=== PATIENT | female | born 1950 | race American Indian/Alaskan Native ===

== ENCOUNTER 2017-01-16 10:34 | Observation (INO) | payer MEDICARE ==
--- NOTE | 2017-01-16 11:07 | ED PDOC ---
Arrival/HPI - General Chief Complaint: Syncope Time Seen by Provider: 01/16/17 10:35 Historian: Patient - History of Present Illness Narrative History of Present Illness (Text): 01/16/17 11:00 Britni Ohara is a 66 year old female, who presents to the emergency department complaining of loss of consciousness and fall. Patient reports at around 06:30 AM today she felt lightheaded, but did not fall. A few hours later she felt the second episode of lightheadedness and fell, losing consciousness. Patient reports hitting her head and now has a bump. Patient denies vision changes, chest pain, shortness of breath, nausea, vomiting, or other complaints. Denies weakness or numbness. Denies trouble speaking. PMD: Dr. Salmeron = Time/Duration: Prior to Arrival Symptom Onset: Sudden Symptom Course: Unchanged Activities at Onset: Light Context: Home Past Medical History - Provider Review Nursing Documentation Reviewed: Yes - Infectious Disease Hx of Infectious Diseases: None - Reproductive Menopause: Yes - Gastrointestinal Hx Diverticulitis: Yes - Psychiatric Hx Substance Use: No - Surgical History Hx Section: Yes Other/Comment: breast lumpectomy benign - Anesthesia Hx Anesthesia: Yes Hx Anesthesia Reactions: No Family/Social History - Physician Review Nursing Documentation Reviewed: Yes Family/Social History: Unknown Family HX Smoking Status: Former Smoker Hx Alcohol Use: No Hx Substance Use: No Allergies/Home Meds Allergies/Adverse Reactions: Allergies No Known Allergies Allergy (Unverified 08/04/13 10:01) Home Medications: Home Meds Medication Instructions Recorded Confirmed No Known Home Med 01/16/17 01/16/17 Review of Systems - Review of Systems Constitutional: absent: Fevers Eyes: absent: Vision Changes Respiratory: absent: SOB, Cough Cardiovascular: Syncope. absent: Chest Pain Gastrointestinal: absent: Abdominal Pain, Vomiting Genitourinary Female: absent: Dysuria Musculoskeletal: Other (bump behind head). absent: Back Pain Neurological: Dizziness (states dizziness but describes lightheadedness). absent: Focal Weakness, Speech Changes Physical Exam Vital Signs Reviewed: Yes Vital Signs Temp Pulse Resp BP Pulse Ox 01/16/17 14:39 89 16 114/61 100 01/16/17 14:01 74 18 118/65 01/16/17 12:55 74 18 118/65 98 01/16/17 11:08 99.0 F 88 18 120/68 98 01/16/17 10:43 99 F 88 16 120/68 96 Temperature: Afebrile Blood Pressure: Normal Pulse: Regular Respiratory Rate: Normal Appearance: Positive for: Well-Appearing, Non-Toxic, Comfortable Pain Distress: None Mental Status: Positive for: Alert and Oriented X 3 Finger Stick Blood Glucose: 112 - Systems Exam Head: Present: Atraumatic, Normocephalic, Other ((+) 1 inch left hematoma behind head) Pupils: Present: PERRL Extroacular Muscles: Present: EOMI Conjunctiva: Present: Normal Neck: Present: Normal Range of Motion. No: MIDLINE TENDERNESS, Paraspinal Tenderness Respiratory/Chest: Present: Clear to Auscultation, Good Air Exchange. No: Respiratory Distress, Accessory Muscle Use Cardiovascular: Present: Regular Rate and Rhythm, Normal S1, S2. No: Murmurs Back: Present: Normal Inspection. No: Midline Tenderness, Paraspinal Tenderness , Pain with Leg Raise Upper Extremity: Present: Normal Inspection, Normal ROM, NORMAL PULSES, Neurovascularly Intact, Capillary Refill < 2s. No: Cyanosis, Edema, Tenderness , Swelling, Erythema, Deformity Lower Extremity: Present: Normal Inspection, NORMAL PULSES, Normal ROM, Neurovascularly Intact, Capillary Refill < 2 s. No: Edema, CALF TENDERNESS, Cyanosis, Tenderness, Swelling, Erythema, Deformity Neurological: Present: GCS=15, CN II-XII Intact, Speech Normal, Motor Func Grossly Intact, Normal Sensory Function, Normal Cerebellar Funct, Memory Normal Skin: Present: Warm, Dry, Normal Color. No: Rashes Psychiatric: Present: Alert, Oriented x 3, Normal Insight, Normal Concentration Medical Decision Making ED Course and Treatment: 01/16/17 Impression: 66 year old female with 1 inch left hematoma behind head and syncopal episode r/ o cardiac vs neurogenic Plan: -- CT Head -- EKG -- Labs -- Reassess and disposition Progress Notes: 01/16/17 EKG: Ordered, reviewed, and independently interpreted the EKG. Rate : 80 BPM Rhythm : NSR Interpretation : No ST-segment elevations or depressions, no T-wave inversions, normal intervals. 01/16/17 12:[address]: Creator: Roque Galicia MD FINDINGS: HEMORRHAGE: No acute parenchymal, subarachnoid or extra-axial hemorrhage. BRAIN: There may be some minimal chronic periventricular white matter ischemic changes. . Questionable small low-attenuation focus seen in the anterior limb right internal capsule which could represent volume averaging of low- attenuation white matter however possibility of a tiny chronic lacunar type infarct not excluded. No evidence of large acute infarct. Mild generalized volume loss. Minor vascular calcifications both carotid siphons. VENTRICLES: Unremarkable. No hydrocephalus. CALVARIUM: Unremarkable. PARANASAL SINUSES: Paranasal sinuses are well-developed and currently well- aerated. Minor mucosal thickening seen within the inferior aspect of the frontal sinus MASTOID AIR CELLS: Unremarkable as visualized. No inflammatory changes. OTHER FINDINGS: Orbits and contents appear grossly unremarkable. IMPRESSION: No acute intracranial hemorrhage. Suspect very minimal chronic periventricular white matter ischemic changes. Questionable artifact versus tiny chronic lacunar type infarct anterior limb right internal capsule. Mild generalized volume loss. 01/16/17 13:00 Chest X-ray: Creator : Roque Galicia MD FINDINGS: LUNGS: Clear. PLEURA: No pneumothorax or pleural fluid seen. CARDIOVASCULAR: Normal. OSSEOUS STRUCTURES: No significant abnormalities. VISUALIZED UPPER ABDOMEN: Normal. OTHER FINDINGS: None. IMPRESSION: No active disease. CT head with no intracranial hemorrhage. CXR nl. Case was discussed with Dr. Glass who will admit to his service. He requested consults with Dr. Garcia and Dr. Shankar. - Lab Interpretations Lab Results: 01/16/17 11:25 01/16/17 11:25 Lab Results 01/16/17 11:25: PT 12.0, INR 1.09 H, APTT 26.9 01/16/17 11:25: Sodium 142, Potassium 4.2, Chloride 105, Carbon Dioxide 27, Anion Gap 15, BUN 18, Creatinine 0.9, Est GFR ( Amer) > 60, Est GFR (Non- Af Amer) > 60, Random Glucose 114 H, Calcium 9.9, Magnesium 1.9, Total Bilirubin 0.5, AST 30, ALT 32, Alkaline Phosphatase 62, Lactate Dehydrogenase 464, Total Creatine Kinase 79, Troponin I < 0.01, Total Protein 8.1, Albumin 4.5 , Globulin 3.6, Albumin/Globulin Ratio 1.3 01/16/17 11:25: Urine Color Light yellow, Urine Appearance Clear, Urine pH 6.5, Ur Specific [place] 1.010, Urine Protein Negative, Urine Glucose (UA) Negative, Urine Ketones Negative, Urine Blood Negative, Urine Nitrate Negative, Urine Bilirubin Negative, Urine Urobilinogen 0.2, Ur Leukocyte Esterase Negative 01/16/17 11:25: WBC 7.1, RBC 4.58, Hgb 14.0, Hct 41.4, MCV 90.4, MCH 30.6, MCHC 33.8, RDW 13.6, Plt Count 222, MPV 11.2 H, Gran % 84.1 H, Lymph % (Auto) 13.2 L , [place] % (Auto) 2.5, Eos % (Auto) 0.1 L, Baso % (Auto) 0.1, Gran # 5.93, Lymph # 0.9 L, [place] # 0.2, Eos # 0.0, Baso # 0.01 01/16/17 10:48: POC Glucose (mg/dL) 112 H - RAD Interpretation Radiology Orders: 01/16/17 11:11 CHEST ONE VIEW [RAD] Stat 01/16/17 11:12 HEAD W/O CONTRAST [CT] Stat NIHSS Stroke Scale 3 - Date/Time Evaluation Performed Date Performed: 01/16/17 Time Performed: 11:00 When Was NIHSS Performed: Baseline - How Severe is the Stroke Level of Consciousness: 0=Alert LOC to Questions: 0=Both comments correct LOC to commands: 0=Obeys both correctly Best Gaze: 0=Normal Visual: 0=No visual loss Facial: 0=Normal Motor Arm - Left: 0=No drift Motor Arm - Right: 0=No drift Motor Leg - Left: 0=No drift Motor Leg - Right: 0=No drift Limb Ataxia: 0=Absent Sensory: 0=Normal Best Language: 0=No aphasia Dysarthia: 0=Normal articulation Extinction & Inattention (Neglect): 0=Normal, no object Score: 0 - Scribe Statement The provider has reviewed the documentation as recorded by the Laura Francis Provider Scribe Attestation: All medical record entries made by the Scribe were at my direction and personally dictated by me. I have reviewed the chart and agree that the record accurately reflects my personal performance of the history, physical exam, medical decision making, and the department course for this patient. I have also personally directed, reviewed, and agree with the discharge instructions and disposition. Disposition/Present on Arrival - Present on Arrival Any Indicators Present on Arrival: No History of DVT/PE: No History of Uncontrolled Diabetes: No Urinary Catheter: No History of Decub. Ulcer: No History Surgical Site Infection Following: None - Disposition Have Diagnosis and Disposition been Completed?: Yes Diagnosis: Syncope, Head injury Disposition Time: 13:47 Patient Plan: Observation Condition: FAIR
[2017-01-16 11:36] LABS: BASO # 0.01 K/mm3 (0.0-2.0); BASO % 0.1 % (0.0-3.0); EOS % 0.1 % (1.5-5.0); GRAN # 5.93 (1.4-6.5); GRAN % 84.1 % (50.0-68.0); HEMATOCRIT 41.4 % (36.0-48.0); LYMPH # 0.9 (1.2-3.4); LYMPH % 13.2 % (22.0-35.0); MEAN CELL VOLUME 90.4 fl (80.0-105.0); MEAN CORPUSCULAR HEMOGLOBIN 30.6 pg (25.0-35.0); MEAN CORPUSCULAR HGB CONC 33.8 g/dl (31.0-37.0); MEAN PLATELET VOLUME 11.2 fl (7.0-11.0); MONO # 0.2 (0.1-0.6); MONO % 2.5 % (1.0-6.0); PH,URINE 6.5 (4.7-8.0); RED CELL DISTRIBUTION WIDTH 13.6 % (11.5-14.5); URINE BILIRUBIN NEGATIVE (NEGATIVE); URINE BLOOD NEGATIVE (NEGATIVE); URINE GLUCOSE (UA) NEGATIVE (NEGATIVE); URINE KETONE NEGATIVE (NEGATIVE); URINE LEUKOCYTE ESTERASE NEGATIVE Leu/uL (NEGATIVE); URINE PROTEIN NEGATIVE mg/dL (<30 mg/dL); URINE UROBILINOGEN 0.2 E.U./dL (<1 E.U./dL); WHITE BLOOD COUNT 7.1 10^3/ul (4.5-11.0)
[2017-01-16 11:37] LABS: URINE APPEARANCE CLEAR (CLEAR); URINE COLOR LIGHT YELLOW (YELLOW)
[2017-01-16 11:46] LABS: ALB/GLOB RATIO 1.3 (1.1-1.8); ALKALINE PHOSPHATASE 62 U/L (38-126); ALT/SGPT 32 U/L (7-56); AST/SGOT 30 U/L (14-36); BILIRUBIN,TOTAL 0.5 mg/dL (0.2-1.3); BLOOD UREA NITROGEN 18 mg/dL (7-21); CALCIUM 9.9 mg/dL (8.4-10.5); CARBON DIOXIDE 27 mmol/L (21-33); CHLORIDE 105 mmol/L (98-107); GFR AFRICAN-AMERICAN > 60; GLUCOSE,RANDOM 114 mg/dL (70-110); INR 1.09 (0.93-1.08); MAGNESIUM 1.9 mg/dL (1.7-2.2); PARTIAL THROMBOPLASTIN TIME 26.9 Seconds (25.1-36.5); POTASSIUM 4.2 mmol/L (3.6-5.0); SODIUM 142 mmol/L (132-148); TOTAL PROTEIN 8.1 g/dL (5.8-8.3)
[2017-01-16 11:57] LABS: TROPONIN I < 0.01 ng/mL
--- NOTE | 2017-01-16 12:12 | CT ---
PROCEDURE: CT HEAD WITHOUT CONTRAST. HISTORY: head injury and syncope COMPARISON: None available. TECHNIQUE: Axial computed tomography images were obtained through the head/brain without intravenous contrast. Radiation dose: Total exam DLP = 726.57 mGy-cm. This CT exam was performed using one or more of the following dose reduction techniques: Automated exposure control, adjustment of the mA and/or kV according to patient size, and/or use of iterative reconstruction technique. FINDINGS: HEMORRHAGE: No acute parenchymal, subarachnoid or extra-axial hemorrhage. BRAIN: There may be some minimal chronic periventricular white matter ischemic changes. . Questionable small low-attenuation focus seen in the anterior limb right internal capsule which could represent volume averaging of low-attenuation white matter however possibility of a tiny chronic lacunar type infarct not excluded. No evidence of large acute infarct. Mild generalized volume loss. Minor vascular calcifications both carotid siphons. VENTRICLES: Unremarkable. No hydrocephalus. CALVARIUM: Unremarkable. PARANASAL SINUSES: Paranasal sinuses are well-developed and currently well-aerated. Minor mucosal thickening seen within the inferior aspect of the frontal sinus MASTOID AIR CELLS: Unremarkable as visualized. No inflammatory changes. OTHER FINDINGS: Orbits and contents appear grossly unremarkable. IMPRESSION: No acute intracranial hemorrhage. Suspect very minimal chronic periventricular white matter ischemic changes. Questionable artifact versus tiny chronic lacunar type infarct anterior limb right internal capsule. Mild generalized volume loss.
--- NOTE | 2017-01-16 12:55 | RAD ---
PROCEDURE: CHEST RADIOGRAPH, 1 VIEW HISTORY: syncope COMPARISON: None available. FINDINGS: LUNGS: Clear. PLEURA: No pneumothorax or pleural fluid seen. CARDIOVASCULAR: Normal. OSSEOUS STRUCTURES: No significant abnormalities. VISUALIZED UPPER ABDOMEN: Normal. OTHER FINDINGS: None. IMPRESSION: No active disease.
[2017-01-16 14:07] VITALS: BMI 24.2
--- NOTE | 2017-01-16 15:21 | MRI ---
PROCEDURE: MR LUMBAR SPINE WITHOUT CONTRAST HISTORY: Back pain COMPARISON: No prior study available for comparison TECHNIQUE: Multiecho multiplanar sequences were performed through the lumbar spine without the use of intravenous contrast. Study is limited by motion artifact. FINDINGS: Current study reveals no acute compression fractures no retropulsed fragments. Vertebral bodies exhibit normal stature. Vertebral bodies and facets normally aligned. . Mild multilevel degenerative spondylosis. T12-L1: No disc herniation, spinal canal stenosis or neural foraminal narrowing. L1-2: No disc herniation, spinal canal stenosis or neural foraminal narrowing. L2-3: Mild age related disc desiccation. Disc space height maintained. There is also mild bilateral on lateral disc bulging that extends into the proximal inferior margins of both exit foramina. Facets are mildly hypertrophic. Central canal and exit foramina are adequate. Note made of an apparent small left-sided nerve sleeve cyst at this level as well. L3-4: Mild age related disc desiccation. Disc space height is maintained. . Small broad-based disc bulge ridge complex is also seen somewhat larger on the left than right with extension into the proximal inferior margin of the left exit foramen. Facets are hypertrophic. Central canal is adequate. Exit foramina are marginal to adequate left slightly more narrowed than the right. L4-5: Mild age related disc desiccation. Disc space height is relatively maintained. Minimal broad-based disc bulge ridge complex is present with small herniation component within the proximal inferior margin left exit foramen. Minimal bulge extends into the proximal inferior margin right exit foramen. There is some flattening of the ventral surface of the thecal sac however the overall central canal appears adequate. Facets are hypertrophic. Exit foramina appear adequate as well despite encroaching disc left proximal L5-S1: There is mild disc desiccation and disc space narrowing so along the posterior disc margin. Small asymmetric disc ridge complex focally larger centrally and to the left and right side. There is some minimal flattening of the ventral surface of the thecal sac centrally and to the right however the overall central canal is adequate new. Facets are mildly hypertrophic. The disc does extend into the proximal inferior margins of the right exit foramen with some slight flattening of the anterior inferior margin of the right L5 exit foramen. Left exit foramen is adequate. There is a small right-sided Tarlov cyst at the S2 level best seen on the sagittal T1 and sagittal STIR sequences. OTHER FINDINGS: Conus terminates at approximately the mid to lower L1 level. The note made of what probably represents a small right adnexal cyst that measures approximately 2.1 x 1.3 cm. Questionable very tiny left adnexal cyst also felt be present. . Pelvic ultrasound followup could be performed further evaluation. IMPRESSION: Limited motion degraded study. Mild multilevel degenerative spondylosis as detailed above. 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 There appears to be a small right-sided adnexal cyst. Questionable very tiny left adnexal cyst. Consider followup pelvic ultrasound. . Followup ultrasound could be performed for further evaluation.
--- NOTE | 2017-01-16 15:31 | MRI ---
PROCEDURE: MRI of the thoracic spine dated the 01/16/2017. HISTORY: Pain. COMPARISON: No prior study available comparison. TECHNIQUE: Multiecho multiplanar sequences were performed through the thoracic spine without the use of intravenous contrast. . Study is limited by motion artifact. FINDINGS: The current study reveals mild chronic appearing anterior wedge deformity of the T4 segment. No significant retropulsed fragments. Slight increased kyphosis at this level. The remaining vertebral bodies and otherwise exhibit normal stature and alignment. Facets normally aligned. . There is a slight disc desiccation at the T3-T6 through or disc space level with a minimal broad-based bulge of the posterior annulus. The remaining disc spaces exhibit mild age related disc desiccation. Disc space heights maintained. No disc herniation or significant disc bulge. Note made of a small right-sided nerve sleeve cyst at the T9-T10 level The overall central bony canal and exit foramina appear adequate. . No intrinsic signal changes seen within the visualized spinal cord. IMPRESSION: Limited motion degraded study. Minor chronic stature loss of the T4 segment with slight increased kyphosis at this level. Minimal broad-based bulge of the posterior annulus seen at the T3-T4 level. The overall central bony canal and exit foramina appear adequate throughout.
--- NOTE | 2017-01-17 00:05 | HP ---
HISTORY OF PRESENT ILLNESS: I was called onto the emergency room to evaluate Britni Ohara. She is a 66-year-old female, who presents with loss of consciousness, status post fall and back pain. She also hit her head and has a lump on the back of the head. She felt dizzy. She lost consciousness. She hit her head, has a lump behind the posterior left side of her head. No chest pain. No shortness of breath. PAST MEDICAL HISTORY: She has a past medical history of menopause, diverticulitis, but none now. She had a breast lumpectomy, benign in the past; also had . FAMILY HISTORY: Unknown family history. SOCIAL HISTORY: Former smoker. No alcohol. No drugs. ALLERGIES: NO KNOWN DRUG ALLERGIES. MEDICATIONS: Does not take any home medications. REVIEW OF SYSTEMS: No fevers, no acute vision changes or hearing changes. No shortness of breath or cough. No chest pain. No abdominal pain, nausea, vomiting, constipation, or diarrhea. No problems urinating. She did lose consciousness. There is a bump behind her head. She did put ice on it. She was dizzy and then lost consciousness. PHYSICAL EXAMINATION GENERAL: She is well appearing, nontoxic, comfortable, though a bit distressed with the left head pain. She is also having middle and lower back pain which comes and goes. She is asking for MRIs. She is alert and oriented x3. Right now, daughter is with her. The blood sugar is 112. VITAL SIGNS: She has a 99 temperature, 88 pulse, 18 respiratory rate, 120/68 blood pressure, and 90% O2 saturation on room air. HEENT: Head is traumatic with a hematoma behind the head in the left side, one inch, normocephalic. Extraocular muscles are intact. Pupils are equally reactive to light. Throat is moist. NECK: Supple. May be gentle tenderness to the cervical spine in the left side, mild. HEART: Regular rate. Normal S1 and S2. LUNGS: Clear to auscultation bilaterally. ABDOMEN: Soft. Positive bowel sounds. No guarding. No rebound. EXTREMITIES: Able to move all 4 extremities. No edema. NEURO: GCS is 15. Cranial nerves II through XII are grossly intact. Normal speech. Can stick out her tongue midline. She can close her eyes tight. Extraocular muscles are intact. SKIN: Warm and dry. No apparent rashes or ulcers. Alert and oriented x3. LYMPHATICS: Thyroid midline, no palpable appreciable lymphadenopathy. LABORATORY DATA: EKG, ST-segment elevations or depressions, none of those, it was a normal sinus rhythm. her urine is clear. She has 142 sodium, 4.2 potassium, BUN 18, creatinine 0.9, GFR is greater than 60, sugar is 112 and 114, calcium is 9.9, magnesium is 1.9, total bilirubin is 0.5, AST is 30, ALT is 32, alkaline phosphatase is 62, lactate dehydrogenase is 464, total creatine kinase is 79, troponin I is less than 0.01, total protein is 8.1, albumin is 4.5, globulin is 3.6, INR is 1.09. She has a 7.1 white count, 14 hemoglobin, 41.4 hematocrit with 222 platelets. She had a head CT and a chest x-ray. Chest x-ray showed no active disease. Head CT showed no acute intracranial hemorrhage, suspect very minimal chronic periventricular white matter ischemic changes, questionable artifact versus tiny chronic lacunar-type infarct in anterior limb of right internal capsule, mild generalized volume loss. PLAN: She is going to be admitted on telemetry observation for syncope, head trauma, dizziness, back pain. She had MRIs of the thoracic and lumbar spine. Consult with Pulmonary and Neurology, have her labs checked tomorrow, neurochecks. Physical therapy will be ordered. Discussed this with the daughter and the patient at length, and we will watch her overnight and make sure she will be on telemetry. Galileo Glass DO
--- NOTE | 2017-01-17 01:35 | CON ---
DATE: 01/16/2017 HISTORY OF PRESENT ILLNESS: This is a 66-year-old female with past medical history not significant, came to emergency room with lightheaded and fell, lost consciousness. The patient has a lump on the back of her head. Daughter is at bedside. PAST MEDICAL HISTORY: Not significant. ALLERGIES: NO KNOWN DRUG ALLERGY. SOCIAL HISTORY: Does not smoke. Does not drink. PHYSICAL EXAMINATION VITAL SIGNS: Blood pressure 120/68. HEENT: Normocephalic, atraumatic. NECK: Supple. NEUROLOGIC: Alert, awake, and oriented x3. No aphasia. Cranial nerves II to XII were tested. Pupils reactive. EOM intact. Visual grimes, full. No facial asymmetry. Tongue midline. Motor examination, moves all the extremities equally. Tone normal. Deep tendon reflexes 1+. Both plantars downgoing. Sensory appears intact. Cerebellar and gait, deferred. IMPRESSION AND PLAN: Syncope, less likely seizure. CAT scan of the head is done, which is negative. The patient had MRI. We will follow up the result. We will do EEG and follow up. Bryce Shankar MD
[2017-01-17 06:48] VITALS: O2SAT 97
[2017-01-17 07:00] LABS: HEMATOCRIT 38.5 % (36.0-48.0); MEAN CORPUSCULAR HEMOGLOBIN 29.7 pg (25.0-35.0); RED CELL DISTRIBUTION WIDTH 13.6 % (11.5-14.5); WHITE BLOOD COUNT 4.6 10^3/ul (4.5-11.0)
[2017-01-17 07:35] LABS: ALB/GLOB RATIO 1.1 (1.1-1.8); ALKALINE PHOSPHATASE 52 U/L (38-126); ALT/SGPT 23 U/L (7-56); AST/SGOT 25 U/L (14-36); BILIRUBIN,TOTAL 0.6 mg/dL (0.2-1.3); BLOOD UREA NITROGEN 19 mg/dL (7-21); CALCIUM 9.5 mg/dL (8.4-10.5); CARBON DIOXIDE 24 mmol/L (21-33); CHLORIDE 106 mmol/L (98-107); GFR AFRICAN-AMERICAN > 60; GLUCOSE,RANDOM 104 mg/dL (70-110); POTASSIUM 3.9 mmol/L (3.6-5.0); SODIUM 140 mmol/L (132-148)
--- NOTE | 2017-01-17 11:00 | MRI ---
PROCEDURE: MRI BRAIN WITHOUT CONTRAST HISTORY: syncope COMPARISON: None. TECHNIQUE: Multiplanar, multisequence MR images of the brain were obtained without intravenous contrast enhancement. FINDINGS: HEMORRHAGE: None DWI: No evidence of an acute or early subacute infarction. BRAIN PARENCHYMA: No mass effect or edema. Minimal microvascular changes are seen. 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 No hydrocephalus. CRANIUM: Unremarkable. ORBITS: Grossly unremarkable. PARANASAL SINUSES/MASTOIDS: Clear VASCULAR SYSTEM: Skull base flow voids intact. OTHER FINDINGS: None. IMPRESSION: No acute intracranial finding
--- NOTE | 2017-01-17 11:54 | DS ---
HISTORY OF PRESENT ILLNESS: I saw resting comfortably in bed this morning. She has no complaints. She is not dizzy, no more issue. She was seen by the neurologist that felt that she was doing fairly well, waiting for Registered Medical Assistant to come in. She has a syncopal episode. She has a history of back pain. She has MRI of the thoracic and lumbar spine, which showed some spondylosis and some disk arthritis and a bulging cyst, but nothing to cause, I think any severe back pain from the nerve or herniated disk. PHYSICAL EXAMINATION: VITAL SIGNS: She has 97 temp, 76 pulse, 104/66 blood pressure, 18 respiratory rate, and 97% O2 sats on room air. HEENT: Head is atraumatic and normocephalic. HEART: Regular rate. LUNGS: Clear to auscultation. ABDOMEN: Soft. EXTREMITIES: No edema. MEDICATIONS: She is on no medications. LABORATORY DATA: She has a 4.6 white count, 12.7 hemoglobin, 38.5 hematocrit with 206 platelets. She has a 140 sodium, potassium 3.9, BUN is 19, creatinine 0.9. GFR is greater than 60, sugar is 104, calcium 9.5. Magnesium is 1.9, total bilirubin 0.6, AST is 25, ALT is 23, alk phos 52, troponin is less than 0.1, total protein is 7. Urine is clean. IMAGING DATA: She had a head CT, which was negative. She is here for syncope, headache, dizziness and back pain, for a cardiology and neurology evaluation and see what physical therapy has to say. Hopefully, we can discharge her on observation and will see what they have to add to the picture if we need to do any other test. Britni Ohara was comfortable this morning. Galileo Glass DO
[2017-01-17 13:40] VITALS: BP 122/85; PULSE 86; RESP 20; TEMP 98
--- NOTE | 2017-01-17 14:05 | CARD ---
APPROVED REPORT EKG Measurement Heart [id number] <Conclusion> Normal sinus rhythm Low voltage QRS Borderline ECG
--- NOTE | 2017-01-17 16:00 | CP.PCM.PN ---
Subjective - Date & Time of Evaluation Date of Evaluation: 01/17/17 Time of Evaluation: 09:00 - Subjective Subjective: PGY-2 Neurology progress note fro Dr. Shankar's service Patient seen and examined at bedside. no acute distress, resting comfortably. Patient states that her dizziness, and lightheadedness has improved. She denies any sob, fever, chill, chest pain, headache. Objective - Vital Signs/Intake and Output Vital Signs (last 24 hours): Temp Pulse Resp BP Pulse Ox 98 F 86 20 122/85 97 01/17/17 13:39 01/17/17 13:39 01/17/17 13:39 01/17/17 13:39 01/17/17 06:00 Intake and Output: 01/17/17 01/17/17 06:59 18:59 Intake Total 480 Output Total 0 Balance 480 - Labs Labs: 01/17/17 06:20 01/17/17 06:20 PT 12.0 SECONDS (9.4-12.5) 01/16/17 11:25 INR 1.09 (0.93-1.08) H 01/16/17 11:25 APTT 26.9 Seconds (25.1-36.5) 01/16/17 11:25 - Constitutional Appears: No Acute Distress - Head Exam Head Exam: ATRAUMATIC, NORMAL INSPECTION, NORMOCEPHALIC - Eye Exam Eye Exam: EOMI, Normal appearance - ENT Exam ENT Exam: Mucous Membranes Moist - Respiratory Exam Respiratory Exam: Clear to Ausculation Bilateral, NORMAL BREATHING PATTERN. absent: Respiratory Distress - Cardiovascular Exam Cardiovascular Exam: REGULAR RHYTHM - Neurological Exam Neurological Exam: Alert, Awake, CN II-XII Intact, Oriented x3 Neuro motor strength exam: Left Upper Extremity: 5, Right Upper Extremity: 5, Left Lower Extremity: 5, Right Lower Extremity: 5 - Skin Skin Exam: Dry, Intact, Normal Color, Warm Assessment and Plan - Assessment and Plan (Free Text) Assessment: 66 yo female with no significant PMH presented with syncope and fall - CT head negative - MRI is negative - carotid US pending - EEG pending - orthostatic normal - PT/OT case reviewed and discussed with attending
--- NOTE | 2017-01-17 18:53 | US ---
PROCEDURE: Bilateral carotid artery duplex ultrasound HISTORY: Carotid stenosis syncope PHYSICIAN(S): Jovani Mercer MD. TECHNIQUE: Duplex sonography and color-flow Doppler were used to evaluate the carotid bifurcations and limited segments of the vertebral arteries bilaterally. FINDINGS: There is mild smooth heterogeneous plaque noted at the carotid bifurcations bilaterally. The peak systolic velocity in the proximal right internal carotid artery is 82 cm/sec. This corresponds to a 20 to 39% proximal right ICA stenosis. Normal systolic velocities are noted in the proximal right external carotid artery. There is antegrade flow in the right vertebral artery. The peak systolic velocity in the proximal left internal carotid artery is 83 cm/sec. This corresponds to a 20 to 39% proximal left ICA stenosis. Normal systolic velocities are noted in the proximal left external carotid artery. There is antegrade flow in the small left vertebral artery. IMPRESSION: 1. Bilateral 20-39% proximal ICA stenoses. 2. Antegrade flow in both vertebral arteries.
--- NOTE | 2017-01-17 19:07 | CARD ---
APPROVED REPORT EXAM: Two-dimensional and M-mode echocardiogram with Doppler and color Doppler. INDICATION Syncope 2D DIMENSIONS Left Atrium (2D)2.5 (1.6-4.0cm)IVSd1.0 (0.7-1.1cm) LVDd3.4 (3.9-5.9cm)PWd1.0 (0.7-1.1cm) LVDs2.1 (2.5-4.0cm)FS (%) 37.9 % LVEF (%)69.2 (>50%) M-Mode DIMENSIONS Aortic Root2.70 (2.2-3.7cm)Aortic Cusp Exc.1.70 (1.5-2.0cm) Aortic Valve AoV Peak Imxqbnxu391.0cm/Hans Peak GR.7mmHg Mitral Valve MV E Nwevsjeq72.7cm/sMV A Qrwgfful81.3cm/sE/A ratio0.6 TDI E/Lateral E'0.0E/Medial E'0.0 Tricuspid Valve TR Peak [id number]/sRAP [id number] Peak Gr.23mmHg FRES06xhCv LEFT VENTRICLE The left ventricle is normal size. There is normal left ventricular wall thickness. The left ventricular function is normal. The left ventricular ejection fraction is within the normal range. There is normal LV segmental wall motion. Transmitral Doppler flow pattern is Grade I-abnormal relaxation pattern. RIGHT VENTRICLE The right ventricle is normal size. There is normal right ventricular wall thickness. The right ventricular systolic function is normal. ATRIA The left atrium size is normal. The right atrium size is normal. AORTIC VALVE The aortic valve is normal in structure. No aortic regurgitation is present. MITRAL VALVE The mitral valve is normal in structure. There is no mitral valve regurgitation noted. TRICUSPID VALVE There is mild pulmonary hypertension. GREAT VESSELS The aortic root is mildly enlarged. The IVC is normal in size and collapses >50% with inspiration. PERICARDIAL EFFUSION There is no pericardial effusion. <Conclusion> The left ventricle is normal size. There is normal left ventricular wall thickness. The left ventricular function is normal. The left ventricular ejection fraction is within the normal range. There is normal LV segmental wall motion. Transmitral Doppler flow pattern is Grade I-abnormal relaxation pattern. There is mild pulmonary hypertension.
--- NOTE | 2017-01-17 22:36 | CON ---
CARDIOLOGY CONSULTATION DATE: 01/17/2017 HISTORY: The patient is a 66-year-old woman, who presented with an episode of dizziness followed by syncope yesterday. No previous cardiac history is noted. PAST MEDICAL HISTORY: The patient's past medical history is free of hypertension or diabetes mellitus. No previous cardiac history is noted. No chest pain. No shortness of breath noted. SOCIAL HISTORY: She is a former smoker, stopped 20 years ago. REVIEW OF SYSTEMS: A 14-point review of systems is reviewed in detail. No cardiac symptomatology is noted. PHYSICAL EXAM: VITAL SIGNS: Blood pressure is 123/80, no orthostatic changes; heart rate is in the 70s. NECK: Negative JVD. LUNGS: Without rales. HEART: Reveals S1, S2. EXTREMITIES: Without edema, and the carotid arteries are without bruits. LABORATORY DATA: Hemoglobin is 12.7. Chemistries, BUN and creatinine are unremarkable. Troponins are negative. CT of the head, as well as brain MRI reveals no acute intracranial findings. IMPRESSION: 1. Syncope. 2. Transient dizziness. 3. There is no evidence for cardiac cause of her syncope. We will complete the echocardiogram today. In addition, we will rule out coronary disease and exercise-induced arrhythmias with stress test which can be done electively. Jovani Garcia MD
== END 2017-01-17 16:15 | disposition home or self-care (01) ==
LOC: ED 10:34 → ERH 13:05 → 3RSO 13:24
PROVIDERS: ADMIT Family Medicine; ATTEND Family Medicine
DX: R55 Syncope and collapse (principal); R42 Dizziness and giddiness; M54.9 Dorsalgia, unspecified; R51 Headache; S06.9X9A Unspecified intracranial injury with loss of consciousness of unspecified duration, initial encounter; M47.9 Spondylosis, unspecified; W19.XXXA Unspecified fall, initial encounter; Y93.9 Activity, unspecified; Y92.9 Unspecified place or not applicable; Z87.891 Personal history of nicotine dependence
CPT/HCPCS: 36415; 70450; 70551; 71010; 72146; 72148; 80053; 81003; 82550; 82948; 83615; 83735; 84484; 85025; 85027; 85610; 85730; 93005; 93306; 93880; 95812; 97116; 97161; 99285; G0378; G8978; G8979; G8980